=== PATIENT | male | born 1990 | race Caucasian/White ===

== ENCOUNTER → 2018-07-22 | Outpatient (REF) | payer OTHER ==
[2018-07-22 18:45] LABS: PLATELET COUNT, AUTOMATED 201 K/uL (150-450)
== END ==
LOC: ZZSTITCHES 18:17
PROVIDERS: ATTEND Physician Assistant
DX: R10.30 Lower abdominal pain, unspecified (principal)
CPT/HCPCS: 82040; 82150; 82247; 82310; 82374; 82435; 82565; 82947; 83690; 84075; 84132; 84155; 84295; 84450; 84460; 84520; 85025

== ENCOUNTER → 2018-07-26 | Outpatient (CLI) | payer OTHER ==
--- NOTE | 2018-07-26 08:57 | RADIOLOGY IMAGING REPORT ---
[place] [facility] [place] Baxter : 1990 MR: [id number] V: [id number] EXAM DATE: ORDERING PHYSICIAN: KATHY MENDOZA TECHNOLOGIST: Location: [facility] Patient: Luis Baxter : 1990 Visit/Account:[id number] Date of Sevice: 07/26/2018 EXAMINATION: Ultrasound abdomen complete HISTORY: Upper abdominal pain. COMPARISON: None. FINDINGS: Gallbladder: No stones, sludge, or pericholecystic fluid is present. No sonographic King sign is re ported. The wall thickness is normal at 2 mm. Liver: There is mild diffuse increased hepatic echogenicity with mildly heterogeneous echotexture, montejo ggestive of fatty infiltration. This may limit assessment for focal liver lesion; however, a relativ e region of hypoechogenicity in the right hepatic dome measures 2.6 x 1.9 x 2.7 cm with small vascula r flow demonstrated on color Doppler imaging, nonspecific, but suggestive of an indeterminant solid l iver mass. Normal hepatopetal flow is present.The liver length is 15 cm. Common bile duct: No significant intrahepatic or extrahepatic biliary ductal dilatation is present. T he common bile duct is normal at 3 mm. Pancreas: Normal where visualized. Spleen: Normal in size and echogenicity measuring 11.1 cm in length. Kidneys: Normal in size and echogenicity, the right measures 10.5 cm in length, and the left 11 cm. No hydronephrosis. Upper abdominal aorta and IVC: Normal where visualized. Ascites: None. IMPRESSION: 1. Possible mild fatty infiltration of the liver. Please correlate with liver function tests. 2. Hypoechoic right hepatic dome lesion of 2.7 cm is suggestive of solid liver mass. Benign liver l esion such as a hemangioma or adenoma may be considered, in the absence of a history of malignancy. Recommend further imaging evaluation with contrast-enhanced CT or MRI, liver lesion protocol. Report Dictated By: Elena Huddleston MD at 07/26/2018 8:48 AM Report E-Signed By: Elena Huddleston MD at 07/26/2018 8:53 AM WSN:LM
== END ==
LOC: US 07:02
PROVIDERS: ATTEND Physician Assistant
DX: K76.0 Fatty (change of) liver, not elsewhere classified (principal)
CPT/HCPCS: 76700